=== PATIENT | male | born 1985 | race Two or more races ===

== ENCOUNTER 2016-08-28 02:24 | Emergency (ER) | payer MEDICAID ==
[~2016-08-28] VITALS: Ht 175.3 cm; Wt 72.6 kg
[2016-08-28 03:42] LABS: Urine Bilirubin Negative (Negative); Urine Blood Negative /uL (Negative); Urine Color Yellow (Yellow); Urine Glucose Normal (Normal); Urine Ketone Negative (Negative); Urine Nitrite Negative (Negative); Urine RBC <1 /hpf (0 - 3); Urine Urobilinogen Normal (Negative)
[2016-08-28 03:47] LABS: Basophils # (auto) 0.1 uL; Basophils % (auto) 1.8 % (0.0-2.0); Eosinophils # (auto) 0.2 uL; Hematocrit 45.3 % (41.0-53.0); Hemoglobin 15.5 g/dL (13.5-17.5); Lymphocytes # (auto) 1.4 uL; Lymphocytes % (auto) 26.7 % (10.0-50.0); Mean Corpuscular Hemoglobin 31.9 pg (28.0-32.0); Mean Corpuscular Hgb Conc. 34.3 g/dL (32.0-36.0); Mean Corpuscular Volume 93.1 fL (80.0-100.0); Mean Platelet Volume 9.7 fL (7.4-10.4); Monocytes # (auto) 0.5 uL; Monocytes % (auto) 9.2 % (0.0-12.0); Neutrophils # (auto) 3.2 uL; Neutrophils % (auto) 59.3 % (37.0-80.0); Platelet Count (auto) 143 10^3/uL (140-450); Red Cell Distribution Width 15.4 % (11.6-16.0); White Blood Cell 5.4 10^3/uL (4.4-10.8)
[2016-08-28 04:15] LABS: Potassium 3.2 mmol/L (3.5-5.1)
[2016-08-28 04:16] LABS: Albumin 4.2 g/dL (3.4-5.0); BUN/Creatinine Ratio 9.9; Bilirubin, Total 0.4 mg/dL (0.2-1.0); Calcium 8.9 mg/dL (8.5-10.1); Magnesium 2.1 mg/dL (1.6-2.6); Total Protein 8.4 g/dL (6.4-8.2)
[2016-08-28] MEDS ORDERED: SODIUM CHLORIDE 0.9% 1,000 ML IV ONE (10:44)
[2016-08-28] MEDS ORDERED: LORazepam 2MG/ML-1ML VIAL IV ONE (10:45)
[2016-08-28 12:50] VITALS: BP 136/77
== END 2016-08-28 14:31 | disposition home or self-care (01) ==
LOC: ER 02:31
DX: K29.20 Alcoholic gastritis without bleeding (principal); F15.10 Other stimulant abuse, uncomplicated; F41.1 Generalized anxiety disorder; E87.6 Hypokalemia; F14.10 Cocaine abuse, uncomplicated; F11.20 Opioid dependence, uncomplicated; F11.10 Opioid abuse, uncomplicated
CPT/HCPCS: 36415; 80053; 80307; 80320; 81001; 83735; 85025; 96361; 96374; 99284; J2060; J7030